=== PATIENT | female | born 1950 | race Caucasian/White ===

== ENCOUNTER 2016-12-11 06:39 | Inpatient (IN) | payer OTHER ==
[~2016-12-11] VITALS: Ht 162.6 cm; Wt 105.1 kg
[~2016-12-11 06:39] MED LIST: ALEVE220 MG PO; ASPIR 8181 M1 PO; ATACAND HCT1 TABLET PO; ATORVASTATIN CA40 MG PO; AVALIDE PO; Advair HFA 115/21 IH; BUMETANIDE0.5 MG PO; BUMEX0.5 MG PO; Bumex PO; CELEBREX200 MG PO; CHANTIX1 MG PO; Coumadin,Jantoven PO; FLEXERIL10 MG PO; Feosol PO; Flexeril PO; IRON325 M1 PO; LIPITOR20 MG PO; LISINOPRIL20 MG PO; Lipitor PO; MOTRIN50 MG PO; Norvasc PO; OCUVITE LUTEIN1 EAC2 PO; OMEGA 3 1,0001 EACH PO; OMEPRAZOLE20 M2 PO; PAROXETINE HCL20 MG PO; PAXIL20 MG PO; PREVACID30 MG PO; PROVENTIL,2.5 MG/0.5 IH; Paxil PO; Percocet 5/325,Endoc PO; Percocet 7.5/325,End PO; PriLOSEC PO; SPIRIVA1 INHALATI IH; SYMBICORT60 INHALA1 IH; Senokot S,Pericolace PO; VITAMIN B COMP1 EACH PO; VITAMIN D1000 INTUN PO; predniSONE PO
[2016-12-11] MEDS ORDERED: BREO ELLIPTA I1 EACH IH (07:32)
[2016-12-11 07:35] VITALS: BP 169/81
[2016-12-11 08:42] LABS: POINT-OF-CARE METER ID UU14174212
[2016-12-11 12:03] LABS: POINT-OF-CARE METER ID UU13113675
[2016-12-11 13:15] VITALS: BP 139/67
[2016-12-11 15:47] VITALS: BP 149/67
[2016-12-11 16:37] LABS: POINT-OF-CARE METER ID UU13113712
[2016-12-11 17:26] VITALS: BP 122/60
[2016-12-11 18:30] VITALS: BP 146/73
[2016-12-11 20:38] VITALS: BP 157/74
[2016-12-11 22:10] LABS: POINT-OF-CARE METER ID UU13113712
[2016-12-12 00:29] VITALS: BP 139/66
[2016-12-12 04:03] VITALS: BP 133/63
[2016-12-12 06:06] LABS: HEMATOCRIT 39.1 % (36.0-46.0); MCV 91.8 FL (83-99)
[2016-12-12 08:08] LABS: POINT-OF-CARE METER ID UU13113712
[2016-12-12 08:11] VITALS: BP 149/68
[2016-12-12 11:44] LABS: POINT-OF-CARE METER ID UU13113712
[2016-12-12 12:27] VITALS: BP 132/62
[2016-12-12 15:42] VITALS: BP 117/57
[2016-12-12 16:27] LABS: POINT-OF-CARE METER ID UU13113712
[2016-12-12 20:02] VITALS: BP 139/63
[2016-12-12 22:14] LABS: POINT-OF-CARE METER ID UU13113712
[2016-12-13 00:25] VITALS: BP 158/70
[2016-12-13 04:00] VITALS: BP 133/68
[2016-12-13 05:28] LABS: HEMATOCRIT 36.8 % (36.0-46.0); MCV 90.4 FL (83-99)
[2016-12-13 08:00] VITALS: BP 137/65
[2016-12-13 08:00] LABS: POINT-OF-CARE METER ID UU13113712
[2016-12-13] MEDS ORDERED: BENADRYL25 MG PO (09:32)
[2016-12-13] MEDS ORDERED: TYLENOL REGULA325 MG PO (09:33)
[2016-12-13] MEDS ORDERED: SENNA PLUS TAB1 EACH PO (09:34)
[2016-12-13] MEDS ORDERED: OXYCODONE HCL5 MG PO (09:34)
[2016-12-13] MEDS ORDERED: XARELTO10 MG PO (09:34)
[2016-12-13 11:33] LABS: POINT-OF-CARE METER ID UU13113712
[2016-12-13 14:23] VITALS: BP 156/65
[2016-12-13 15:50] VITALS: BP 132/68
== END 2016-12-13 17:02 | disposition home health service (06) | DRG 470 ==
LOC: 2SOUTH → 3WEST 06:39 → 2SOUTH 06:39 → 3WEST 12:43 → 2SOUTH 13:01 → 3WEST 12-13 17:02
PROVIDERS: Orthopaedic Surgery
PROC: 0SR904A Replacement of Right Hip Joint with Ceramic on Polyethylene Synthetic Substitute, Uncemented, Open Approach (ICD-10-PCS; principal; 2016-12-11)
DX: M16.11 Unilateral primary osteoarthritis, right hip (principal); I10 Essential (primary) hypertension; E11.9 Type 2 diabetes mellitus without complications; J44.9 Chronic obstructive pulmonary disease, unspecified; Z96.642 Presence of left artificial hip joint; Z98.1 Arthrodesis status
CPT/HCPCS: 73501; 82948; 85014; 85018; 94640; 94640 76; 94660; 94799; J0131; J0690; J1100; J1815; J2250; J2405; J3010; J7030; J7050